=== PATIENT | male | born 1985 | race Caucasian/White ===

== ENCOUNTER 2019-11-12 11:52 | Emergency (ER) | payer SELFPAY ==
[~2019-11-12] VITALS: Ht 188 cm; Wt 87.0 kg
[2019-11-12 11:57] VITALS: BP 119/78
[2019-11-12] MEDS ORDERED: DIPH,PERTUSS(ACELL),TET VAC/PF 0.5 ML IM-VACC ONE ×2 (12:00→12:14)
[2019-11-12] MEDS ORDERED: LIDOCAINE 1%-EPI 1:100K, 20ML SQ ONE (12:00)
--- NOTE | 2019-11-12 12:11 | NUR ---
[employer]: PT TO ROOM FROM [facility] FERNANDES
[2019-11-12] MEDS ORDERED: LIDOCAINE 1%-EPI 1:100K, 20ML ONE (12:14)
--- NOTE | 2019-11-12 12:23 | NUR ---
PT REFUSED TDAP VACCINE.
[2019-11-12] MEDS ORDERED: ONDANSETRON ODT 4 MG ONE (12:58)
[2019-11-12] MEDS ORDERED: ONDANSETRON ODT 4 MG PO ONE (13:00)
--- NOTE | 2019-11-12 13:54 | NUR ---
PT TO XRAY
--- NOTE | 2019-11-12 14:12 | NUR ---
ALL RESULTS ARE BACK AT THIS TIME. CHART UP FOR RECHECK.
== END 2019-11-12 14:33 | disposition home or self-care (01) ==
LOC: ED 12:34
DX: S01.511A Laceration without foreign body of lip, initial encounter (principal); R51 Headache; W18.39XA Other fall on same level, initial encounter; Y93.79 Activity, other specified sports and athletics; Y92.488 Other paved roadways as the place of occurrence of the external cause; Y99.8 Other external cause status
CPT/HCPCS: 12051; 70100; 99284; Q0162